=== PATIENT | female | born 1995 | race Hispanic/Latino ===

== ENCOUNTER 2021-04-05 08:12 | Outpatient (CLI) | payer SELFPAY | END 2021-04-05 08:13 | disposition home or self-care (01) | LOC: CSHWCC 08:12 | PROVIDERS: ATTEND Nurse Practitioner Family | DX: T81.32XS Disruption of internal operation (surgical) wound, not elsewhere classified, sequela (principal); F32.9 Major depressive disorder, single episode, unspecified; G89.11 Acute pain due to trauma; K57.32 Diverticulitis of large intestine without perforation or abscess without bleeding; L08.9 Local infection of the skin and subcutaneous tissue, unspecified; S31.104A Unspecified open wound of abdominal wall, left lower quadrant without penetration into peritoneal cavity, initial encounter | CPT/HCPCS: 99212; G0463 ==

== ENCOUNTER 2021-12-24 09:54 | Outpatient (CLI) | payer OTHER ==
[2021-12-24 11:52] LABS: BHCG - Serum Negative (NEGATIVE); Pregs Control Background? CLEAR/WHITE (CLR/WHITE); Pregs Control Bar Appear? YES (CONTROL BAR)
== END 2021-12-24 09:55 | disposition home or self-care (01) ==
LOC: CSHLAB 09:54
PROVIDERS: ATTEND Internal Medicine Gastroenterology
DX: Z01.812 Encounter for preprocedural laboratory examination (principal); Z20.822 Contact with and (suspected) exposure to COVID-19; Z43.3 Encounter for attention to colostomy
CPT/HCPCS: 84703; 87811

== ENCOUNTER 2021-12-27 08:06 | Day surgery (SDC) | payer OTHER ==
[2021-12-25 13:45] VITALS: BMI 30.7
[2021-12-27] MEDS ORDERED: Lidocaine 1% MPF 2 ML VIAL ONE (09:20)
[2021-12-27] MEDS ORDERED: PROPOFOL 40 ML ONE (09:24)
[2021-12-27] MEDS ORDERED: Lidocaine 1% PF 5 ML VIAL ONE (09:24)
== END 2021-12-27 11:10 | disposition home or self-care (01) ==
LOC: CSHSDC 08:06
PROVIDERS: ATTEND Internal Medicine Gastroenterology
PROC: 0DBN8ZX Excision of Sigmoid Colon, Via Natural or Artificial Opening Endoscopic, Diagnostic (ICD-10-PCS; principal; 2021-12-27)
PROC: 0DJD8ZZ Inspection of Lower Intestinal Tract, Via Natural or Artificial Opening Endoscopic (ICD-10-PCS; principal; 2021-12-27)
DX: Z43.3 Encounter for attention to colostomy (principal); K63.5 Polyp of colon; K64.9 Unspecified hemorrhoids; F41.9 Anxiety disorder, unspecified; F32.A Depression, unspecified; Z20.822 Contact with and (suspected) exposure to COVID-19
CPT/HCPCS: 88305; J2704